=== PATIENT | female | born 1975 | race Hispanic/Latino ===

== ENCOUNTER 2017-05-03 11:46 | Emergency (ER) | payer MEDICAID ==
[2017-05-03 11:52] VITALS: TEMP 98
--- NOTE | 2017-05-03 15:27 | C.PDOC ---
History Of Present Illness 41 yr old female presents to the ER stating few days ago, [place] when she felt a sudden sharp pain in her left calf and was unable to walk afterwards. Patient states the pain has continued and its worse with pressure on the leg. Patient denies any known trauma or injury, back pain, weakness or numbness. Time Seen by Provider: 05/03/17 12:06 Chief Complaint (Nursing): Lower Extremity Problem/Injury History Per: Patient History/Exam Limitations: no limitations (Few days) Current Symptoms Are (Timing): Still Present Past Medical History Reviewed: Historical Data, Nursing Documentation, Vital Signs Vital Signs: Last Vital Signs Temp 98 F 05/03/17 11:48 Pulse 100 H 05/03/17 11:48 Resp 16 05/03/17 11:48 BP 128/86 05/03/17 11:48 Pulse Ox 97 05/03/17 15:36 Family History: States: No Known Family Hx - Social History Hx Alcohol Use: Yes (WINE) Hx Substance Use: No - Immunization History Hx Tetanus Toxoid Vaccination: Yes Review Of Systems Except As Marked, All Systems Reviewed And Found Negative. Musculoskeletal: Positive for: Other ((+) Left calf pain ). Negative for: Back Pain Neurological: Negative for: Weakness, Numbness Physical Exam - Physical Exam Appears: Well, Non-toxic, No Acute Distress Skin: Warm, Dry, No Rash Head: Atraumatic, Normacephalic Extremity: Calf Tenderness (Left calf, marked tenderness), Capillary Refill (<2) , No Deformity, Swelling (Left calf, moderate swelling ) Pulses: Left Dorsalis Pedis: Normal, Right Dorsalis Pedis: Normal Neurological/Psych: Oriented x3, Normal Speech, Normal Motor ED Course And Treatment O2 Sat by Pulse Oximetry: 97 - CT Scan/US MRI - Lower Extremity Other Rad Studies (CT/US): Read By Radiologist, Radiology Report Reviewed CT/US Interpretation: MRI left calf. History: Tendon rupture. Comparison: None available. Technique: Multi-echo multiplanar sequences were performed through the left calf without the use of intravenous contrast. Findings: Prominent edema, fluid, and hemorrhage seen at the fascial interface of the medial head of the gastrocnemius muscle and soleus musculature suggestive for a possible plantaris tendon rupture. Additional signal abnormality seen within muscle belly of the soleus musculature suggestive for muscle strain and or partial tearing. Remainder of the visualized musculature appears preserved. Visualized osseous structures are preserved. Impression: Prominent edema, fluid, and hemorrhage seen at the fascial interface of the medial head of the gastrocnemius muscle and soleus musculature suggestive for a possible plantaris tendon rupture. Additional signal abnormality seen within muscle belly of the soleus musculature suggestive for muscle strain and or partial tearing. Medical Decision Making Medical Decision Making: * MRI - Lower Extremity REsults discussed with pt ie strain muscle rupture plan continue crutch walking f/u ortho rx pain meds Disposition Counseled Patient/Family Regarding: Diagnosis, Need For Followup - Disposition Referrals: Oc Moralez III, MD [Staff Provider] - Disposition: HOME/ ROUTINE Disposition Time: 16:02 Condition: GOOD Prescriptions: Naproxen [Naprosyn] 1 tab PO BID PRN #25 tab PRN Reason: Pain oxyCODONE/Acetaminophen [Percocet 5/325 mg Tab] 1 tab PO Q4H PRN #15 tab PRN Reason: .severe pain Forms: Work Excuse - Clinical Impression Clinical Impression: Muscle strain, Rupture of left plantaris tendon - Scribe Statement The provider has reviewed the documentation as recorded by the Saulibgayle Sarkar Provider Attestation: All medical record entries made by the Saulibgayle were at my direction and personally dictated by me. I have reviewed the chart and agree that the record accurately reflects my personal performance of the history, physical exam, medical decision making, and the department course for this patient. I have also personally directed, reviewed, and agree with the discharge instructions and disposition.
--- NOTE | 2017-05-03 15:35 | MRI ---
MRI left calf History: Tendon rupture. Comparison: None available. Technique: Multi-echo multiplanar sequences were performed through the left calf without the use of intravenous contrast. Findings: Prominent edema, fluid, and hemorrhage seen at the fascial interface of the medial head of the gastrocnemius muscle and soleus musculature suggestive for a possible plantaris tendon rupture. Additional signal abnormality seen within muscle belly of the soleus musculature suggestive for muscle strain and or partial tearing. Remainder of the visualized musculature appears preserved. Visualized osseous structures are preserved. Impression: Prominent edema, fluid, and hemorrhage seen at the fascial interface of the medial head of the gastrocnemius muscle and soleus musculature suggestive for a possible plantaris tendon rupture. Additional signal abnormality seen within muscle belly of the soleus musculature suggestive for muscle strain and or partial tearing.
[2017-05-03 16:21] VITALS: BP 137/74; PULSE 93; RESP 18; O2SAT 99
== END 2017-05-03 16:21 | disposition home or self-care (01) ==
LOC: C.ER 11:46
DX: S86.812A Strain of other muscle(s) and tendon(s) at lower leg level, left leg, initial encounter (principal); Y93.02 Activity, running

== ENCOUNTER 2017-06-21 13:01 | Emergency (ER) | payer MEDICAID ==
[2017-06-21 13:13] VITALS: BP 122/78; PULSE 61; RESP 18; TEMP 98.9; O2SAT 98
--- NOTE | 2017-06-21 13:34 | C.PDOC ---
History Of Present Illness Patient is a 41 y/o F with hx of uti's, presenting with 2 days history of dysuria and frequency. She reports that she has a history of utis and reports that this feels similar. Denies fever, flank pain, abdominal pain, nausea/ vomiting. Time Seen by Provider: 06/21/17 13:14 Chief Complaint (Nursing): Female Genitourinary Past Medical History Vital Signs: Last Vital Signs Temp 98.9 F 06/21/17 13:13 Pulse 61 06/21/17 13:13 Resp 18 06/21/17 13:13 BP 122/78 06/21/17 13:13 Pulse Ox 98 06/21/17 14:02 - Medical History PMH: No Chronic Diseases Family History: States: Unknown Family Hx - Social History Hx Alcohol Use: Yes (WINE) Hx Substance Use: No - Immunization History Hx Tetanus Toxoid Vaccination: Yes Hx Influenza Vaccination: No Hx Pneumococcal Vaccination: No Review Of Systems Constitutional: Negative for: Fever, Chills Cardiovascular: Negative for: Chest Pain, Palpitations Respiratory: Negative for: Cough, Shortness of Breath, SOB with Excertion, Wheezing Gastrointestinal: Negative for: Nausea, Vomiting, Abdominal Pain, Diarrhea, Constipation Genitourinary: Positive for: Dysuria, Frequency. Negative for: Vaginal Discharge, Vaginal Bleeding, Pelvic Pain Musculoskeletal: Negative for: Back Pain Skin: Negative for: Rash Neurological: Negative for: Weakness, Numbness Physical Exam - Physical Exam Appears: Well, Non-toxic, No Acute Distress Skin: Normal Color, Warm, Dry Head: Atraumatic, Normacephalic Eye(s): bilateral: Normal Inspection, PERRL, EOMI Cardiovascular: Rhythm Regular Respiratory: Normal Breath Sounds Gastrointestinal/Abdominal: Soft, No Tenderness, No Mass, No Distention Back: Normal Inspection, No CVA Tenderness Extremity: Normal ROM Neurological/Psych: Oriented x3 Gait: Steady ED Course And Treatment O2 Sat by Pulse Oximetry: 98 Medical Decision Making Medical Decision Making: UA is consistent with uti. Disposition - Disposition Disposition: HOME/ ROUTINE Disposition Time: 14:01 Condition: GOOD Additional Instructions: Follow-up with PMD within 2 days. Return to ED if condition worsens. Prescriptions: Nitrofurantoin Macrocrystals [Macrobid] 100 mg PO BID #10 cap Instructions: Urinary Tract Infection in Women (ED) - Clinical Impression Clinical Impression: UTI (urinary tract infection)
[2017-06-21 13:51] LABS: HCG,QUALITATIVE URINE NEGATIVE (NEGATIVE)
[2017-06-21 13:56] LABS: URINE BACTERIA RARE (<OCC); URINE BILIRUBIN NEGATIVE (NEGATIVE); URINE CLARITY Clear (Clear); URINE COLOR Colorless (YELLOW); URINE GLUCOSE (UA) NORMAL (Normal); URINE LEUKOCYTE ESTERASE 2+ Leu/uL (Negative); URINE NITRATE NEGATIVE (NEGATIVE); URINE PROTEIN NEGATIVE (NEGATIVE); URINE UROBILINOGEN NORMAL mg/dL (0.2-1.0)
[2017-06-21 13:59] LABS: URINE BLOOD 1+ (NEGATIVE)
== END 2017-06-21 14:09 | disposition home or self-care (01) ==
LOC: C.ER 13:01
DX: N39.0 Urinary tract infection, site not specified (principal)

== ENCOUNTER 2017-11-30 09:36 | Emergency (ER) | payer MEDICAID ==
[2017-11-30 09:56] VITALS: BP 149/88; PULSE 78; RESP 18; TEMP 97.9; O2SAT 98
--- NOTE | 2017-11-30 10:14 | C.PDOC ---
History Of Present Illness 42 y/o female, with history of a cracked tooth, presents to the ER for evaluation of an upper dental problem which began 3 days ago. Patient reports that she has a headache pain to the side of her face felt her tongue. Patient denies having any other medical problems. Time Seen by Provider: 11/30/17 09:44 Chief Complaint (Nursing): Dental Pain History/Exam Limitations: no limitations Onset/Duration Of Symptoms: Days Current Symptoms Are (Timing): Still Present Severity: Moderate Past Medical History Reviewed: Historical Data, Nursing Documentation, Vital Signs Vital Signs: Last Vital Signs Temp 97.9 F 11/30/17 09:54 Pulse 78 11/30/17 09:54 Resp 18 11/30/17 09:54 BP 149/88 11/30/17 09:54 Pulse Ox 98 11/30/17 11:39 - Medical History PMH: No Chronic Diseases Surgical History: No Surg Hx Family History: States: No Known Family Hx - Social History Hx Alcohol Use: Yes Hx Substance Use: No - Immunization History Hx Tetanus Toxoid Vaccination: Yes Hx Influenza Vaccination: No Hx Pneumococcal Vaccination: No Review Of Systems Except As Marked, All Systems Reviewed And Found Negative. Constitutional: Negative for: Fever, Chills ENT: Negative for: Ear Pain Respiratory: Negative for: Cough Gastrointestinal: Negative for: Nausea, Vomiting Physical Exam - Physical Exam Appears: Non-toxic, No Acute Distress Skin: Normal Color, Warm Head: Atraumatic, Normacephalic Eye(s): bilateral: Normal Inspection, PERRL Oral Mucosa: Moist Gingiva: Normal Appearing, No Erythema, No Bleeding, No Abscess Extremity: Normal ROM Neurological/Psych: Oriented x3, Normal Speech, Normal Cognition, Normal Motor, Normal Sensation ED Course And Treatment O2 Sat by Pulse Oximetry: 98 (RA) Pulse Ox Interpretation: Normal Medical Decision Making Medical Decision Making: Impression: Upper Dental Problem Plan: --Tylenol - 975 mg PO --Motrin - 600 mg PO Disposition Counseled Patient/Family Regarding: Diagnosis, Need For Followup, Rx Given - Disposition Disposition: HOME/ ROUTINE Disposition Time: 10:12 Condition: STABLE Additional Instructions: Follow up with your dentist Prescriptions: Ibuprofen [Motrin] 600 mg PO TID #15 tab Penicillin VK [Penicillin VK Tab] 500 mg PO QID #40 tab Instructions: Toothache (ED) Forms: General Discharge Instructions, [employer] ([employer]), Work Excuse - POA Present On Arrival: None - Clinical Impression Clinical Impression: Dental abscess - Scribe Statement The provider has reviewed the documentation as recorded by the Scribe Adrian Yeager Provider Attestation: All medical record entries made by the Scribe were at my direction and personally dictated by me. I have reviewed the chart and agree that the record accurately reflects my personal performance of the history, physical exam, medical decision making, and the department course for this patient. I have also personally directed, reviewed, and agree with the discharge instructions and disposition.
== END 2017-11-30 10:37 | disposition home or self-care (01) ==
LOC: C.ER 09:36
DX: K04.7 Periapical abscess without sinus (principal)